=== PATIENT | female | born 1950 | race Caucasian/White ===

== ENCOUNTER 2017-04-09 13:08 | Emergency (ER) | payer OTHER ==
[~2017-04-09] VITALS: Ht 160 cm; Wt 56.5 kg
[2017-04-09 14:40] VITALS: BP 142/73
== END 2017-04-09 14:41 | disposition home or self-care (01) ==
LOC: EMS 13:12
DX: L23.9 Allergic contact dermatitis, unspecified cause (principal); B02.9 Zoster without complications
CPT/HCPCS: 99283